=== PATIENT | male | born 1990 | race Caucasian/White ===

== ENCOUNTER → 2020-01-26 16:08 | Outpatient (BNVA) | payer OTHER, SELFPAY | PROVIDERS: Family Provider Nurse Practitioner Family; PCP Nurse Practitioner Family; Visit Provider Family Medicine | DX: Z20.828 Contact with and (suspected) exposure to other viral communicable diseases (principal) | CPT/HCPCS: 87635 ==

== ENCOUNTER 2020-09-19 09:09 | Day surgery (SDC) | payer OTHER, SELFPAY ==
[2020-09-17 14:26] VITALS: BMI 42.9
--- NOTE | 2020-09-19 09:30 | ANES.PREANE2 ---
Pre-Anesthetic Assessment Pre-Anesthetic Assessment: Height/Weight: Height 1.96 m Weight 164.2 kg Proposed Procedure: Operation Date: 09/19/20 11:15 Proposed Procedures p EGD 10309 k21.9(Not Applicable) - Redd Coreas MD Was Beta Corey taken within 24 hours: N/A Was Clonidine taken within 24 hours: N/A Social: Social History: No alcohol and No tobacco Exam: Pre-Anes Outpt Exam: alert, oriented x 3, clear to auscultation bilaterally and regular rate & rhythm Airway: Submandibular: WNL Cervical ROM: WNL MP: 1 Dentition: Full GI: GI: GERD Metabolic: Metabolic: Morbid obesity Neuropsych: Neuropsych: Anxiety Anesthetic Plan: ASA status: 3 Anesthesia: MAC Risk of > 500 ml blood loss (7ml/kg in children): No PFSH Anesthesia PFSH: Family History Other Cancer Denies family history of Diabetes CAD (coronary artery disease) Hypertension Stroke Social History Smoking and tobacco status: never smoked Alcohol intake: current Alcohol intake frequency: few times a week Lives independently: Yes Household members: spouse Marital status: service: Yes Data Anesthesia Cardiac Studies: No Data to Display
[2020-09-19 09:42] VITALS: BP 126/85; PULSE 70; RESP 16; TEMP 36.3; O2SAT 99
[2020-09-19] MEDS: sodium chloride 0.9% 1,000 ML 30 ML IV (09:54)
--- NOTE | 2020-09-19 10:41 | W.PM.OPSUD ---
Surgery/Procedure H&P Update DATE OF PROCEDURE: September 19, 2020 DATE H&P PERFORMED: 09/13/20 H&P UPDATE INFORMATION: I have reviewed H&P completed within last 30 days, I have examined patient prior to procedure and No changes to prior documentation PREOP DIAGNOSIS: Acid reflux associated with morbid obesity PRIMARY INDICATION FOR PROCEDURE: The same PLANNED PROCEDURE: Operation Date: 09/19/20 11:15 Proposed Procedures p EGD 99159 k21.9(Not Applicable) - Redd Coreas MD
[2020-09-19 12:25] VITALS: BP 120/78; PULSE 71; RESP 16; TEMP 36.4; O2SAT 93
[2020-09-19 12:39] VITALS: BP 115/78; PULSE 71; RESP 16; TEMP 36.4; O2SAT 95
--- NOTE | 2020-09-19 13:32 | ANE.PACU2 ---
Inpatient post-anesthesia follow up: Airway intact: Yes Vital signs: Temperature 97.6 F Pulse Rate 71 Respiratory Rate 16 Blood Pressure 115/78 Pulse Oximetry 95 Oxygen Delivery Me thod Room Air Oxygen Flow Rate 3 Fraction of Inspir ed Oxygen Hydration adequate: Yes Nausea and vomiting: No Pain level: 1 Mental status: Baseline
[2020-09-20 07:51] LABS: H. Pylori / CLO Test Negative
== END 2020-09-19 12:57 | disposition home or self-care (01) ==
PROVIDERS: Family Provider Nurse Practitioner Family; PCP Nurse Practitioner Family; Visit Provider Surgery
PROC: 0DJ08ZZ Inspection of Upper Intestinal Tract, Via Natural or Artificial Opening Endoscopic (ICD-10-PCS; CPT 43235; principal; 2020-09-19 11:15)
DX: K21.9 Gastro-esophageal reflux disease without esophagitis (principal); E66.01 Morbid (severe) obesity due to excess calories; Z68.41 Body mass index [BMI] 40.0-44.9, adult; K29.70 Gastritis, unspecified, without bleeding; F41.9 Anxiety disorder, unspecified; E03.9 Hypothyroidism, unspecified
CPT/HCPCS: 43239; 87077; 96360; 96361; J2704; J7030

== ENCOUNTER 2020-11-15 14:59 | Outpatient (CLI) | payer OTHER, SELFPAY ==
[2020-11-15 15:21] LABS: Basophils # 0.1 10^3/uL (0.0-0.1); Basophils % 0.9 %; Eosinophils # 0.2 10^3/uL (0.0-0.8); Eosinophils % 2.3 %; Hematocrit 46.2 % (42.0-52.0); Hemoglobin 15.1 g/dL (11.7-16.6); Lymphocytes # 1.7 10^3/uL (0.8-4.8); Lymphocytes % 21.3 %; Mean Corpuscular HGB Conc 32.7 g/dL (30.0-36.0); Mean Corpuscular Hemoglobin 28.8 pg (28.0-34.0); Mean Platelet Volume 8.8 fL (7.4-10.4); Monocytes # 0.8 10^3/uL (0.2-0.9); Monocytes % 9.6 %; Neutrophils # 5.19 10^3/uL (1.8-7.7); Neutrophils % 65.4 %; Nucleated Red Blood Cells % 0 %; Platelet Count 432 10^3/cmm (130-400); Red Blood Count 5.25 10^6/uL (4.1-5.3); Red Cell Distribution Width 13.4 % (12.1-15.1); White Blood Count 7.9 10^3/uL (4.0-10.0)
[2020-11-15 15:35] LABS: INR 1.09 (0.8-1.2)
[2020-11-15 16:04] LABS: Alanine Aminotransferase 78 U/L (0-41); Albumin Level 4.4 g/dL (3.5-5.2); Alkaline Phosphatase 84 IU/L (40-130); Anion Gap 16.2 (5-19); Aspartate Amino Transferase 37 U/L (0-40); Blood Urea Nitrogen 18 mg/dL (6-20); Calcium 9.3 mg/dL (8.5-10.5); Carbon Dioxide 24 mmol/L (22-29); Chloride 105 mmol/L (98-107); Chol HDL Ratio 5.58 mg/dL (1.0-5.00); Cholesterol 184 mg/dL (0-200); Ferritin 334 ng/mL (30-400); Globulin 2.8 g/dL (1.3-4.6); Glucose 90 mg/dL (65-115); HDL Cholesterol 33 mg/dL (60-100); Iron 74 ug/dL (59-158); LDL Cholesterol Calculated 127 mg/dL (50-129); LDL HDL Ratio 3.85 RATIO (0.00-3.22); Magnesium 2.2 mg/dL (1.7-2.3); Osmolality Calculated 293 mOsm/kg (285-295); Percent Saturation 26.4 % (20-50); Phosphorus 3.4 mg/dL (2.5-4.5); Potassium 4.2 mmol/L (3.5-5.1); Sodium 141 mmol/L (136-145); Thyroid Stimulating Hormone 1.47 uIU/mL (0.27-4.20); Total Bilirubin 0.3 mg/dL (0.15-1.2); Total Iron Binding Capacity 280 mcg/dl; Total Protein 7.2 g/dL (6.6-8.7); Triglycerides 122 mg/dL (0-150); Unsaturated Iron Binding 206 ug/dL (112-347); Vitamin B12 1076 pg/mL (232-1245)
[2020-11-15 16:16] LABS: Calcium 9.7 mg/dL (8.5-10.5)
[2020-11-15 16:18] LABS: Folate Level 18.6 ng/mL (4.5-32.2)
[2020-11-15 16:23] LABS: Parathyroid Hormone 48.2 pg/mL (15-65)
== END 2020-11-15 15:00 | disposition home or self-care (01) ==
PROVIDERS: PCP Nurse Practitioner Family; Visit Provider Surgery
DX: E88.81 Metabolic syndrome and other insulin resistance (principal)
CPT/HCPCS: 36415; 80053; 80061; 82310; 82607; 82728; 82746; 83540; 83550; 83735; 83970; 84100; 84443; 85025; 85610; 87635

== ENCOUNTER 2020-11-20 15:57 | Inpatient (IN) | payer OTHER, SELFPAY ==
[2020-11-15 12:58] VITALS: BMI 41.2
--- NOTE | 2020-11-15 17:53 | ANES.PREANE2 ---
Pre-Anesthetic Assessment Pre-Anesthetic Assessment: Height/Weight: Height 1.96 m Weight 157.85 kg Preop Diagnosis: Acid reflux associated with morbid obesity Proposed Procedure: Operation Date: 11/20/20 07:00 Proposed Procedures p Laparoscopic Gastric Sleeve w/ EGD 32095 [id number] e66.01(Not Applicable) - Redd Coreas MD s EGD(Not Applicable) - Redd Coreas MD Was Beta Corey taken within 24 hours: N/A Was Clonidine taken within 24 hours: N/A Social: Social History: No alcohol and No tobacco Exam: Pre-Anes Outpt Exam: alert, oriented x 3, clear to auscultation bilaterally and regular rate & rhythm Airway: Submandibular: WNL Cervical ROM: WNL MP: 2 Dentition: Full GI: GI: GERD Metabolic: Metabolic: Thyroid Neuropsych: Neuropsych: Depression Anesthetic Plan: ASA status: 2 Anesthesia: General Risk of > 500 ml blood loss (7ml/kg in children): No PFSH Anesthesia PFSH: Family History Other Cancer Denies family history of Diabetes CAD (coronary artery disease) Hypertension Stroke Social History Smoking and tobacco status: never smoked Alcohol intake: current Alcohol intake frequency: few times a week Lives independently: Yes Household members: spouse Marital status: service: Yes Data Anesthesia Cardiac Studies: No Data to Display
[2020-11-20] VITALS (30 sets, daily range): BP systolic 111–165; BP diastolic 72–99; PULSE 49–85; RESP 10–26; TEMP 36.2–37.1; O2SAT 91–100
[2020-11-20] MEDS: sodium chloride 0.9% 1,000 ML 999 ML IV (08:40)
[2020-11-20] MEDS: acetaminophen 1,000 MG/100 ML PIGGYBACK 400 MG IV ×2 (08:40→23:50)
[2020-11-20] MEDS: heparin 5,000 unit/mL INJ 1 mL 5000 UNIT SUBCUT ×2 (08:46→22:42)
[2020-11-20] MEDS: scopolamine 1.5 Patch 1 PATCH TRANSDERMA (08:46)
[2020-11-20] MEDS: pantoprazole 40 mg SDV IVP (08:52)
[2020-11-20] MEDS: sodium chloride 0.9% 1,000 ML 30 ML IV (09:53)
--- NOTE | 2020-11-20 10:04 | P.ANESUD_ITS ---
Pre-Anesthetic Update Pre-Anesthetic Assessment: Date of Surgery/Procedure: 11/20/20 Preop Luz Elena gnosis: Acid reflux associated with morbid obesity Proposed Procedure: Operation Date: 11/20/20 10:20 Proposed Procedures p Laparoscopic Gastric Sleeve w/ EGD 50976 [id number] e66.01(Not Applicable) - Redd Coreas MD s EGD(Not Applicable) - Redd Coreas MD Any changes to Pre-Anesthetic Assessment?: No Last Intake: Intake Last Liquid Date 11/19/20 Last Liquid Time 19:00 Last Solid Date 10/30/20 Last Solid Time 00:00 Vitals: Temperature 97.2 F L 11/20/20 08:18 Temperature Source Temporal Artery S can 11/20/20 08:18 Pulse Rate 70 11/20/20 08:18 Respiratory Rate 16 11/20/20 08:18 Blood Pressure 151/99 11/20/20 08:18 Blood Pressure Grace n 116 11/20/20 08:18 Pulse Oximetry 95 11/20/20 08:18 Oxygen Delivery Me thod 11/20/20 08:23 Exam: Pre-Anes Outpt Exam: alert, oriented x 3, clear to auscultation bilaterally and regular rate & rhythm Cardiac Studies: No Data to Display
--- NOTE | 2020-11-20 10:36 | PM.HP ---
Providers/Chief Complaint Admitting Physician: Redd Coreas MD Primary Care Provider: Lisa Weems APN Chief Complaint: gastric sleeve with egd History of Present Illness Wale Finley is a pleasant 30 year old male morbidly obese with a current BMI of 40.9 with associated multiple medical comorbidities, has seen and evaluated at the bariatric surgery office and met all the appropriate criteria and medical necessity for weight loss surgery in the form of laparoscopic vertical sleeve gastrectomy. Patient was cleared by psychology service and attended all the appropriate seminars and classes in preparation for surgery. Review of Systems General: Reports: 10 or more systems reviewed and unremarkable except in HPI and below Medications/Allergies Home Medications Medication Instructions Recorded Confirmed Last Taken Type bupropion HCl 75 mg tablet 75 mg PO DAILY 09/13/20 11/20/20 11/19/20 History cholecalciferol (vitamin D3) 25 25 mcg PO DAILY 09/13/20 11/20/20 11/19/20 History mcg (1,000 unit) capsule fluoxetine 20 mg capsule 20 mg PO DAILY 09/13/20 11/20/20 11/19/20 History levothyroxine 125 mcg capsule 125 mcg PO DAILY 09/13/20 11/20/20 11/19/20 History Allergies Allergy/AdvReac Type Severity Reaction Status Date / Time No Known Allergies Allergy Verified 11/17/20 17:18 PFSH Acute PFSH: Family History Other Cancer Denies family history of Diabetes CAD (coronary artery disease) Hypertension Stroke Social History Smoking and tobacco status: never smoked Alcohol intake: current Alcohol intake frequency: few times a week Lives independently: Yes Household members: spouse Marital status: service: Yes Vitals/I&O/Wt Last Vital Signs Temp 97.2 F L 11/20/20 08:18 Pulse 70 11/20/20 08:18 Resp 16 11/20/20 08:18 BP 151/99 11/20/20 08:18 Pulse Ox 95 11/20/20 08:18 11/19/20 11/20/20 11/20/20 22:59 06:59 14:59 Intake Total 1100 / 1100 Balance 1100 / 1100 Weight last 48 hrs Weight 345 lb Physical Exam Narrative: EXAM NARRATIVE: Patient is conscious alert oriented X3 BMI 40.9 Head and neck examination PERRLA no masses no cervical lymphadenopathy no jaundice Cardiac examination audible S1-S2 no murmurs no gallops no arrhythmias Chest is clear bilateral,abscence of Rhonchi or wheezes,no surgical emphysema Abdomen nontender nondistended soft no organomegaly guarding or rigidity/no signs of peritonitis Morbidly obese Extremities no cyanosis no clubbing no edema A&P Assessment and plan (1) Morbid obesity: After thorough history physical examination and reviewing the chart i Did discuss with the patient about obesity, and its impact on the patient's life, we did discuss in length the details of laparoscopic gastric sleeve, including the benefits, alternatives, indications and risks, with special emphasis on; infection, leak from stomach that may require additional surgeries, gastric conduit stenosis, dumping syndrome, vitamin and mineral deficiencies, gallbladder and kidney stones, injury to nearby organs. Also patient is aware of potential related complications to bougie insertion and EGD, perforation of the esophagus or stomach or other viscera, may require further surgeries conversion to open with potential thoracotomy and or laparotomy and conversion to gastric bypass and potential placement of feeding tube. Discussed WEIGHT loss AT LEAST 5% of total body weight prior to surgery Patient received at least 60 minutes of counseling regarding nutritional guidelines specific for the bariatric surgery patient, we discussed in detail required diet and lifestyle changes that need to be made in order to be successful with weight loss after surgery. All questions have been answered and all concerns have been addressed to patient's satisfaction. Routine labs were ordered, a baseline 12-lead EKG was obtained, as well as urinalysis, recommended patient increase water intake for adequate oral hydration. Patient has been compliant with the preoperative classes and seminars that were held,and supervised through our bariatric services, all patient's inquiries and concerns have been addressed, preoperative classes included nutrition,physical therapy, psychology, nursing care and description of the procedure by me and potential complications. In addition patient had undergoing appropriate preoperative anesthesia workup. Patient is educated about having liquid protein diet 2 weeks prior to surgery to downsize the volume of the liver. The patient verbalized understanding and agreed with the plan of care Informed consent per chart Status: Acute Attestations Medical Necessity Statement*: Patient will require inpatient patient will require inpatient hospitalization for perioperative care passing 2 midnights Time Spent in Patient Care: (>than 50% of time spent in counselling and/or direct pt care on unit). Coding Level of Care Code Acute Sharepoint Application Developer for Chg Fwd Diagnoses Morbid obesity E66.01
--- NOTE | 2020-11-20 14:25 | P.OP_ITS ---
Operative Report Date of procedure: November 20, 2020 Pre-op Diagnosis: Morbid obesity Post-op diagnosis: same Procedure Done: Laparoscopic vertical sleeve gastrectomy with intraoperative EGD Specimens removed/disposition: Subtotal gastrectomy status post gastric sleeve, sutures marked proximal Surgeon: Redd Coreas Tar Roofer: Surgical techjasmin Carson, industrial tech instructor student circulating nurse Mame Mendosa Anesthesia: General ( ALCIRA Montalvo and Dr. Cantrell) Estimated blood loss (mL): 20 IV fluids (mL): 1,100 Urine output (mL): 750 Condition: stable Disposition: floor Brief History: Morbid obesity Procedure: Procedure: Patient was identified in holding area , appropriate pharmacologic DVT prophylaxis was given and preoperative IV fluid hydration, patient was then taken to the operating room where the patient was placed in supine position, intubated by anesthesia prophylactic antibiotics were given per protocol,Time-out was done verifying the patient's name/date of /planned procedure and destination after the procedure, all were in agreement.SCDs confirmed to be functioning, and beta salvador protocol was confirmed. A Nguyễn catheter was inserted by the circulating nurse revealing clear urine. A foot board was applied to secure the patient while the patient is placed in reversed Trendelenburg, all pressure points were padded, and the patient was appropriately secured to the table, anesthesia was asked to rotate the table back and forth to verify that the patient is appropriately secured, and that was the case. The abdomen was prepped and draped under the usual sterile technique. A 1 cm transverse incision was made with a 15 blade scalpel approximately 15 cm below the xiphoid process and 3 cm left of the midline.A 12 mm optical trocar port was placed under direct vision into the peritoneal cavity without intial evidence of injury to peritoneal structures upon entry. The peritoneal cavity was insufflated with carbon dioxide gas up to 15 mmHg pressure.A 45? angle laparoscopy was placed through the port into the peritoneal cavity there was no significant blood, fluid, or evidence of intra-abdominal injury under direct visualization,Longer trocars were then used;a 12 mm trocar port was placed in the right epigastric region and a fourth 5 mm trocar port was placed in the mid epigastric region more caudad than and medial to the previous port. A 5 mm trocar port was placed in the left lateral flank and additional 5 mm trocar was inserted midway between the left lateral flank trocar and the initial 12 mm trocar. I lifted the omentum up to make sure there were no injuries encountered from the initial trocar insertion, the underlying transverse colon and small bowel viscera were normal. There was a small superficial tear of the mesentery of the small bowel and a [id number] 2-0 silk stitch was applied under direct visualization. All trocars inserted were long arc trocars due to the thick layer of subcutaneous tissue that the patient has. Patient was then placed in the reversed Trendelenburg, the liver responded well to the liquid protein diet and there was no indication for elevation and lifting the liver up. Following this, the greater curvature of the stomach was freed from the omentum using the Enseal device. This division included the short gastric vessels proximally. This dissection was carried from approximately 4 cm-6 cm proximal to the pylorus and extending all the way up to the angle of Hiss. During this process the posterior aspect of the stomach was mobilized from the underlying peritoneum and the posterior aspect of the stomach was well exposed. With the greater curvature of the stomach exposed from within 4-6 cm of the pylorus and extending to the angle of Hiss, which also included the posterior stomach, a 40 [place]i standard template passed under direct vision down the esophagus, stomach, and into the first part of the duodenum by the anesthesia provider and under direct guidance and visualization by me,via the laparoscopy. Using the template 40 [place]i aligned along the lesser curvature of the stomach and all the way to the first part of the Duodenum,the 40 [place] Bougie was used as a template the laparoscopic vertical gastric sleeve was performed starting from a point about 5 cm from the pylorus along the greater curvature.Using the [place] Laparoscopic ABHINAV linear cutting stapler with [employer] Endopath enforcement, a series of german were used to transect the stomach in a vertical fashion along the left side of the template. Through the entire division of the stomach using the staplers,the template was always checked to be in good place and well aligned to the lesser curvature while dividing the stomach. This was carried all the way to the angle of Hiss.Green loads were used for the distal two thirds of the stomach and green loads were used for the distal part the more proximal part of the stomach Gold loads were used and the last loads were blue load with reinforcement(Endopath). The staple line along the remaining tubularized stomach was tested for leaks and bleeding under direct vision as the 40 [place] template was exchanged (and there was no evidence of blood on the tip of the template) by a standard diagnostic EGD via the mouth by my me after I scrubbed out, insufflation was achieved and the staple line submerged under saline ,meanwhile a clamp was applied distally onto the end of the tubularized stomach to allow insufflation test for leak. There was no evidence of leak .There was adequate hemostasis along the staple line.EGD was taken out at this point after deflation of the tubularized stomach. The transected partial stomach, which included the greater curvature, was removed from the peritoneum through the first 12 mm trocar site, and was sent for permanent pathology Prior to closure of the fascia. A final look laparoscopy identified no injuries, there was mild oozing at the fat pad at the GE junction and 5 m clips were applied as well as the distal part of the conduit. An interrupted #1 PDS suture on a granny needle suture passer was used to close the right epigastric and the other 12 mm trocar left of the midline fascial defects under direct visualization.The other trocars were removed under direct vision and no evidence of bleeding was identified. Final look at the superficial mesenteric tear of the small bowel was intact and no bleeding and no jeopardizing of the blood flow to the bowel. The pneumoperitoneum was decompressed.All skin incisions were irrigated with saline, then closed with german, followed by application of sterile dressings.The patient was extubated and taken to the recovery room with normal vital signs. All counts of instruments,sponges and needles were completed at the end of the procedure I was present for the whole entire procedure
--- NOTE | 2020-11-20 14:39 | SUR.PHASEI ---
1437 PATIENT TO PACU FROM OR. RR EVEN AND UNLABORED. NO DISTRESS. 4 INCISIONS TO ABDOMEN, CDI COVERED WITH BANDAIDS. DUNN IN PLACE.
[2020-11-20] MEDS: fentaNYL 50 mcg/mL INJ 2mL IVP ×2 (14:49→15:04)
[2020-11-20] MEDS: ondansetron 2 mg/ML SDV 2 mL 4 MG IVP ×3 (15:19→23:11)
--- NOTE | 2020-11-20 16:02 | SUR.PHASEI ---
1546 PATIENT TO MED SURG. NO DISTRESS. A/XO3. SPOUSE AT BEDSIDE. 4 INCISIONS TO ABDOMEN CDI. DUNN CATH IN PLACE DRAINING CLEAR, YELLOW URINE.
[2020-11-20] MEDS: HYDROmorphone 1 mg/mL INJ 1 mL IVP ×2 (16:58→19:35)
[2020-11-20] MEDS: lactated ringers 1,000 ML 150 ML IV ×2 (16:58→22:43)
[2020-11-20 17:02] LABS: Glucose Point of Care 140 mg/dL (70-110)
--- NOTE | 2020-11-20 18:57 | ANE.PACU2 ---
Inpatient post-anesthesia follow up: Airway intact: Yes Vital signs: Temperature 98.2 F Pulse Rate 54 Respiratory Rate 17 Blood Pressure 111/72 Pulse Oximetry 92 Oxygen Delivery Me thod Nasal Cannula Oxygen Flow Rate 2 Fraction of Inspir ed Oxygen Hydration adequate: Yes Nausea and vomiting: No Pain level: 2 Mental status: Baseline
[2020-11-20] MEDS: promethazine 25 mg/mL SDV 1 mL 12.5 MG IM (19:18)
[2020-11-20] MEDS: morphine 4 mg/mL SDV 1 mL 2 MG IVP (23:10)
[2020-11-21] VITALS (9 sets, daily range): BP systolic 133–145; BP diastolic 84–87; PULSE 53–66; RESP 14–18; TEMP 36.6–37.3; O2SAT 93–96
[2020-11-21 02:56] LABS: Hematocrit 45.5 % (42.0-52.0); Hemoglobin 14.6 g/dL (11.7-16.6)
[2020-11-21 03:15] LABS: Anion Gap 14.5 (5-19); Blood Urea Nitrogen 6 mg/dL (6-20); Calcium 8.5 mg/dL (8.5-10.5); Carbon Dioxide 24 mmol/L (22-29); Chloride 105 mmol/L (98-107); Glomerular Filtration Rate 156.1 mL/min (90-130); Glucose 140 mg/dL (65-115); Osmolality Calculated 288 mOsm/kg (285-295); Potassium 4.5 mmol/L (3.5-5.1); Sodium 139 mmol/L (136-145)
[2020-11-21] MEDS: morphine 4 mg/mL SDV 1 mL 2 MG IVP (03:49)
[2020-11-21] MEDS: promethazine 25 mg/mL SDV 1 mL 12.5 MG IM (03:52)
[2020-11-21] MEDS: lactated ringers 1,000 ML 150 ML IV ×3 (05:29→23:14)
--- NOTE | 2020-11-21 06:10 | P.PN_ITS ---
Subjective Subjective: Interval history: Patient overall feels well. No acute events overnight and adequate urine output. Stable H&H Medications: Reviewed: Yes Vitals/I&O/Wt Last Vital Signs Temp 97.8 F 11/21/20 04:00 Pulse 62 11/21/20 04:00 Resp 14 11/21/20 04:00 BP 142/84 11/21/20 04:00 Pulse Ox 96 11/21/20 04:00 11/20/20 11/20/20 11/21/20 14:59 22:59 06:59 Intake Total 1250 / 1250 1112.5 / 2362.5 1100 / 3462.5 Output Total 970 / 970 500 / 1470 Balance 280 / 280 612.5 / 892.5 1100 / 1992.5 Weight last 48 hrs Weight 345 lb Physical Exam Narrative: EXAM NARRATIVE: Patient is conscious alert oriented X3 BMI 40.9 Head and neck examination PERRLA no masses no cervical lymphadenopathy no jaundice Cardiac examination audible S1-S2 no murmurs no gallops no arrhythmias Chest is clear bilateral,abscence of Rhonchi or wheezes,no surgical emphysema Abdomen nontender except slightly at the incision sites nondistended soft no organomegaly guarding or rigidity/no signs of peritonitis, dressing in place without complications. Nguyễn catheter in place with clear urine Extremities no cyanosis no clubbing no edema Urinary Catheter Management^: Nguyễn: Cath Placed During This Visit: yes Reason for Continuing Indwelling Catheter: Other Urinary Catheter Date of Insertion: 11/20/20 Urinary Catheter Time of Insertion: 12:00 Data : 11/21/20 02:25 11/21/20 02:25 A&P Assessment and plan (1) Status post laparoscopic sleeve gastrectomy: Status post laparoscopic sleeve gastrectomy 11/20/2020. We will continue n.p.o. status and will follow an upper GI study once this is cleared we will start the patient on clear liquid diet. Encourage ambulation and will continue pharmacologic DVT prophylaxis DC Nguyễn catheter Continue wireless cellular technician Assurance and education All questions have been answered and all concerns have been addressed to patient's satisfaction. Status: Acute Attestations Medical Necessity Statement*: She requiring inpatient hospitalization passing 2 midnights for perioperative care status post laparoscopic sleeve gastrectomy. Time Spent in Patient Care: (>than 50% of time spent in counselling and/or direct pt care on unit) . Coding Level of Care Code Acute Group Home Supervisor for Chg Fwd Diagnoses Status post laparoscopic sleeve gastrectomy Z98.84
[2020-11-21] MEDS: heparin 5,000 unit/mL INJ 1 mL 5000 UNIT SUBCUT ×3 (06:23→23:08)
--- NOTE | 2020-11-21 08:00 | FL_ITS ---
WS: [id number] Gastrografin UPPER GI EXAMINATION HISTORY: Status Post Gastric Sleeve COMPARISON: None available. FLUOROSCOPY TIME: 0.9 minutes. Patient swallowed the Gastrografin mixture without difficulty. Good distention of the distal esophagu s. There is very slight narrowing of the distal esophagus. Gastrografin flows readily into the stomac h and through the gastric sleeve into the proximal duodenum. No extravasation of the Gastrografin from the GI tract. [place]/MD upper GI series 37124 IMPRESSION: Satisfactory recent post gastric sleeve Gastrografin evaluation.
[2020-11-21] MEDS: HYDROmorphone 1 mg/mL INJ 1 mL IVP (08:01)
[2020-11-21] MEDS: ondansetron 2 mg/ML SDV 2 mL 4 MG IVP ×3 (08:01→23:12)
[2020-11-21] MEDS: diatrizoate meglumine 120 mL Sol PO (08:26)
--- NOTE | 2020-11-21 10:18 | PC.CHAP ---
Pastoral Care Encounter/Spiritual Assessment Type of Contact [] Declined rental boats caretaker visit [] Patient/Family/Request visit [] Outpatient visit [] Follow-up visit [] Physician referral [] Code/Alert [x] Routine visit [] Staff referral [] Actively dying [] Patient sleeping [] Family support [] [] Out of room [] Palliative care [] [] Receiving care in room [] Pre-surgical visit [] Trauma [] Long length of stay [] ICU visit [] Other: Relational/Emotional Strength [x] Patient feels connected with others/family/visitors/staff [] Distress [] Loneliness/isolation [] Abandonment Spirituality of Patient x[] Person of Dunia [x] Attends [employer] of their [place] [] Believes in Prayer [] Reads Bible or Mormon materials [] There are Spiritual issues to be addressed Environmental Department Manager Interventions [x] Prayer [x] Active listening [x] Non-anxious presence [] Spiritual/emotional support [] Crisis/trauma care [] Spiritual counseling [] Bereavement support [] Provided bereavement packet [] Provided Bible/devotional materials [] Provided toy/stuffed animal, coloring book to patient or family member [] Provided Communion [] Anointing/[place] [] Salvation [x] Completed spiritual assessment [] Other: Impact on Illness or Injury [] Angry [] Fearful [] Anxious [] Often cries [] Exhaustion [] Unable to work [] Unable to attend baptist [] Unable to walk/stand [] Unable to read [] Unable to drive [] Unable to eat/drink [] Unable to sleep [] Unable to be with family [] Patient intubated [] Other: Summary Time spent with patient 10 min
--- NOTE | 2020-11-21 13:42 | PC.NUTR ---
Nutrition consult received d/t bariatric surgery. Pt denies questions/concerns at this time regarding education provided through bariatric program. Reports vomiting at lunch--will notify MD> Noted [employer] Gelatein on tray--explained rationale for this product and encouraged pt to consume this when able to tolerate. Recommend to advance diet as tolerated by pt and encourage po intakes of meals/supplements. See RD assessment for further details.
[2020-11-21] MEDS: acetaminophen 1,000 MG/100 ML PIGGYBACK 400 MG IV (14:53)
[2020-11-21] MEDS: HYDROcodone-acetaminophen 5-325 mg Tablet 1 TAB PO (20:15)
[2020-11-22] VITALS (7 sets, daily range): BP systolic 116–162; BP diastolic 80–95; PULSE 57–82; RESP 16–18; TEMP 36.8–37.7; O2SAT 91–94
[2020-11-22 03:25] LABS: Hematocrit 41.5 % (42.0-52.0); Hemoglobin 13.3 g/dL (11.7-16.6)
[2020-11-22 03:44] LABS: Anion Gap 11.9 (5-19); Blood Urea Nitrogen 6 mg/dL (6-20); Calcium 8.6 mg/dL (8.5-10.5); Carbon Dioxide 25 mmol/L (22-29); Chloride 105 mmol/L (98-107); Glucose 103 mg/dL (65-115); Osmolality Calculated 284 mOsm/kg (285-295); Potassium 3.9 mmol/L (3.5-5.1); Sodium 138 mmol/L (136-145)
[2020-11-22] MEDS: heparin 5,000 unit/mL INJ 1 mL 5000 UNIT SUBCUT ×2 (05:54→14:29)
[2020-11-22] MEDS: lactated ringers 1,000 ML 150 ML IV ×2 (05:54→14:30)
--- NOTE | 2020-11-22 07:32 | PC.NURSE ---
Bedside report received from Omayra Perez RN.
--- NOTE | 2020-11-22 12:00 | P.PN_ITS ---
Subjective Subjective: Interval history: Patient was seen and examined yesterday, he had a small bout of emesis yesterday yet no other acute events and he maintains to have adequate urine output and pain under control. So far tolerating p.o. intake and has stable vital signs. Slight drift in H&H. Medications: Reviewed: Yes Vitals/I&O/Wt Last Vital Signs Temp 98.7 F 11/22/20 11:36 Pulse 82 11/22/20 11:36 Resp 16 11/22/20 11:36 BP 116/80 11/22/20 11:36 Pulse Ox 92 11/22/20 11:36 11/21/20 11/22/20 11/22/20 22:59 06:59 14:59 Intake Total 300 / 1420 1930 / 3350 240 / 240 Output Total 1000 / 1010 Balance 300 / 1410 930 / 2340 240 / 240 Physical Exam Narrative: EXAM NARRATIVE: Patient is conscious alert oriented X3 BMI 40.9 Head and neck examination PERRLA no masses no cervical lymphadenopathy no jaundice Cardiac examination audible S1-S2 no murmurs no gallops no arrhythmias Chest is clear bilateral,abscence of Rhonchi or wheezes,no surgical emphysema Abdomen nontender except slightly at the incision sites nondistended soft no organomegaly guarding or rigidity/no signs of peritonitis. Skin german in place and incisions are clean dry and intact Extremities no cyanosis no clubbing no edema Urinary Catheter Management^: Nguyễn: Cath Placed During This Visit: yes Reason for Continuing Indwelling Catheter: Other Urinary Catheter Date of Insertion: 11/20/20 Urinary Catheter Time of Insertion: 12:00 Data : 11/22/20 02:37 11/22/20 02:37 A&P Assessment and plan (1) Status post laparoscopic sleeve gastrectomy: Status post laparoscopic sleeve gastrectomy 11/20/2020. 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 Assurance and education All questions have been answered and all concerns have been addressed to patient's satisfaction. Status: Acute Attestations Medical Necessity Statement*: Patient requiring inpatient hospitalization passing 2 midnights for perioperative care status post laparoscopic sleeve gastrectomy. Time Spent in Patient Care: (>than 50% of time spent in counselling and/or direct pt care on unit) . Coding Level of Care Code Acute Technical Operator for Chg Fwd Diagnoses Status post laparoscopic sleeve gastrectomy Z98.84
--- NOTE | 2020-11-22 17:03 | PM.DCS ---
Discharge Providers Date of Admission: 11/20/20 15:57 Date of Discharge: November 22, 2020 Attending Provider at Admission: Redd Coreas MD Attending Provider at Discharge: Redd Coreas MD Primary Care Provider: Lisa Weems APN Diagnoses at Discharge Discharge Diagnosis (1) Status post laparoscopic sleeve gastrectomy: Permanent problem details: Patient undergone uneventful laparoscopic sleeve gastrectomy. Reason for Visit Reason for Visit: gastric sleeve with egd Hospital Course Hospital Course This is a pleasant 30 years old gentleman morbidly obese undergone laparoscopic vertical sleeve gastrectomy. Postoperatively patient had uneventful postoperative course. Undergone an upper GI study that showed appropriate postoperative surgical anatomy. Patient continued to have stable vital signs and good urine output. Maintained appropriate p.o. intake yet he did have one bout of small emesis but that subsided with appropriate education and antinausea medications. Patient met the appropriate and safe criteria for discharge home Physical Exam Narrative: EXAM NARRATIVE: Patient is conscious alert oriented X3 BMI 40.9 Head and neck examination PERRLA no masses no cervical lymphadenopathy no jaundice Cardiac examination audible S1-S2 no murmurs no gallops no arrhythmias Chest is clear bilateral,abscence of Rhonchi or wheezes,no surgical emphysema Abdomen nontender except slightly at the incision sites nondistended soft no organomegaly guarding or rigidity/no signs of peritonitis. Skin german in place and incisions are clean dry and intact Extremities no cyanosis no clubbing no edema Urinary Catheter Management^: Nguyễn: Cath Placed During This Visit: yes Reason for Continuing Indwelling Catheter: Other Urinary Catheter Date of Insertion: 11/20/20 Urinary Catheter Time of Insertion: 12:00 Discharge Data Data Completed and Pending: Completed Studies During Hospitalization Category Date Time Status [place] [id number] Routine Exams 11/21/20 08:00 Completed Pending at discharge Category Date Time Status ES surgery / GI i mages Routine Exams 11/20/20 10:20 Taken Basic Metabolic P ryne AM LABS Lab 11/23/20 04:00 Ordered Hemoglobin and He matocrit AM LABS Lab 11/23/20 04:00 Ordered Pathology: Surgic al [PTH] Routine Pth 11/20/20 14:40 Received Labs from last 24 hours 11/22/20 11/22/20 02:37 02:37 Hgb 13.3 Hct 41.5 L Sodium 138 Potassium 3.9 Chloride 105 Carbon Dioxide 25 Anion Gap 11.9 BUN 6 Creatinine 0.8 GFR Calculation 112.0 Glucose 103 Calculated Osmolal ity 284 L Calcium 8.6 Addt'l Data from Hospital Stay: Patient swallowed the Gastrografin mixture without difficulty. Good distention of the distal esophagus. There is very slight narrowing of the distal esophagus. Gastrografin flows readily into the stomach and through the gastric sleeve into the proximal duodenum. No extravasation of the Gastrografin from the GI tract. FL/FL upper GI series [id number] IMPRESSION: Satisfactory recent post gastric sleeve Gastrografin evaluation. Vitals: Last Vital Signs Temp 98.9 F 11/22/20 16:07 Pulse 63 11/22/20 16:07 Resp 16 11/22/20 16:07 BP 120/81 11/22/20 16:07 Pulse Ox 94 11/22/20 16:07 Discharge Plan Discharge Patient Disposition: Home Condition: Stable Prescriptions: New Zofran 4 mg tablet 4 mg PO Q8H PRN (Reason: nausea and vomiting) 20 Days Qty: 60 RF: 1 Protonix 40 mg tablet,delayed release (DR/EC) 40 mg PO DAILY 30 Days Qty: 30 RF: 2 Transderm-Scop 1 mg over 3 days patch 3 day 1 patch transdermal Q3D PRN (Reason: nausea and vomiting) 12 Days Qty: 4 RF: 1 hydrocodone-acetaminophen 5-325 mg tablet 1 tab PO Q6H PRN (Reason: pain) Qty: 28 RF: 0 Continued fluoxetine [Prozac] 20 mg capsule 20 mg PO DAILY RF: 0 bupropion HCl 75 mg tablet 75 mg PO DAILY RF: 0 levothyroxine 125 mcg capsule 125 mcg PO DAILY RF: 0 cholecalciferol (vitamin D3) 25 mcg (1,000 unit) capsule 25 mcg PO DAILY RF: 0 Discharge Orders: Discharge Order (Routine); Ordered 11/22/20 Ordered By: Redd Coreas Referrals: Redd Coreas MD [Physician] - 1 week (Please call [facility] tomorrow to schedule an appointment to be seen in one week. ) Discharge Diet: As Directed Discharge Activity: Limit activity as instructed Patient Instructions: Scopolamine (Absorbed through the skin), Hydrocodone/Acetaminophen (By mouth), Ondansetron (By mouth), Pantoprazole (By mouth), Laparoscopic Gastrectomy (DC), Opioid Safety Activity Restrictions/Additional Instructions: 1. Patient can shower after 48 hours from surgery 2. Plan to Dc skin german at the office by your provider 3. Up and walking as tolerated 4. Do NOT lift more than 5 pounds first 2 weeks after surgery and not more than 25 pounds 6 to 8 weeks after surgery. 5. Do not operate heavy machinery or drive while using pain medications. 6.Contact the office or return to the ER for worsening nausea vomiting fevers or chills, or noticing any redness around incision sites or discharge. 7.Avoid constiption 8.Follow nutrition guidelines per Dietary seminar. Discharge Attestations Time Spent in Discharge Care*: greater than 30 min Specific Discharge Activities: educating patient and educating and/or supporting family/caregiver Status at Discharge: Cognitive status at discharge: cognitively intact, Behavioral status at discharge: cooperative, Functional status at discharge: independent ambulation Overall status at discharge: patient is progressing back to baseline Quality Metrics Clinical Quality Measures During this hospital stay, did patient experience: None Coding Level of Care Code Acute Chg FW DC note Diagnoses Status post laparoscopic sleeve gastrectomy Z98.84
== END 2020-11-22 17:37 | disposition home or self-care (01) | DRG 621 ==
LOC: MEDSURG 15:57
PROVIDERS: Admitting Provider Surgery; PCP Nurse Practitioner Family; Visit Provider Surgery
PROC: 0DB64Z3 Excision of Stomach, Percutaneous Endoscopic Approach, Vertical (ICD-10-PCS; CPT 43775; principal; 2020-11-20 10:20)
PROC: 0DJ08ZZ Inspection of Upper Intestinal Tract, Via Natural or Artificial Opening Endoscopic (ICD-10-PCS; CPT 43235; 2020-11-20 10:20)
DX: E66.01 Morbid (severe) obesity due to excess calories (principal); Z68.41 Body mass index [BMI] 40.0-44.9, adult; K21.9 Gastro-esophageal reflux disease without esophagitis; R11.10 Vomiting, unspecified
CPT/HCPCS: 36415; 36416; 51702; 74240; 80048; 82962; 85014; 85018; 88309; 96365; 96372; 96374; 96375; C9113; C9290; J0690; J1100; J1170; J1644; J2270; J2405; J2550; J2704; J3010; J3490; J7030; Q9963

== ENCOUNTER 2021-02-18 16:15 | Outpatient (CLI) | payer OTHER, SELFPAY ==
[2021-02-18 16:49] LABS: Basophils # 0.1 10^3/uL (0.0-0.1); Basophils % 0.8 %; Eosinophils # 0.3 10^3/uL (0.0-0.8); Eosinophils % 3.2 %; Hematocrit 42.8 % (42.0-52.0); Hemoglobin 13.9 g/dL (11.7-16.6); Lymphocytes # 2.2 10^3/uL (0.8-4.8); Lymphocytes % 27.8 %; Mean Corpuscular HGB Conc 32.5 g/dL (30.0-36.0); Mean Corpuscular Hemoglobin 28.6 pg (28.0-34.0); Mean Corpuscular Volume 88.1 fl (80-94); Mean Platelet Volume 9.1 fL (7.4-10.4); Monocytes # 0.6 10^3/uL (0.2-0.9); Monocytes % 8.1 %; Neutrophils # 4.65 10^3/uL (1.8-7.7); Nucleated Red Blood Cells % 0 %; Platelet Count 368 10^3/cmm (130-400); Red Blood Count 4.86 10^6/uL (4.1-5.3); Red Cell Distribution Width 13.2 % (12.1-15.1); White Blood Count 7.8 10^3/uL (4.0-10.0)
[2021-02-18 17:42] LABS: Calcium 9.4 mg/dL (8.5-10.5)
[2021-02-18 17:49] LABS: Parathyroid Hormone 51.4 pg/mL (15-65)
[2021-02-18 17:54] LABS: Alanine Aminotransferase 27 U/L (0-41); Albumin Level 4.2 g/dL (3.5-5.2); Alkaline Phosphatase 79 IU/L (40-130); Anion Gap 12.9 (5-19); Aspartate Amino Transferase 16 U/L (0-40); Blood Urea Nitrogen 10 mg/dL (6-20); Calcium 9.4 mg/dL (8.5-10.5); Carbon Dioxide 26 mmol/L (22-29); Chloride 107 mmol/L (98-107); Cholesterol 164 mg/dL (0-200); Ferritin 230 ng/mL (30-400); Globulin 2.4 g/dL (1.3-4.6); Glomerular Filtration Rate 129.9 mL/min (90-130); Glucose 79 mg/dL (65-115); HDL Cholesterol 41 mg/dL (60-100); Iron 66 ug/dL (59-158); LDL Cholesterol Calculated 101 mg/dL (50-129); LDL HDL Ratio 2.46 RATIO (0.00-3.22); Magnesium 2.1 mg/dL (1.7-2.3); Osmolality Calculated 292 mOsm/kg (285-295); Percent Saturation 26.9 % (20-50); Potassium 3.9 mmol/L (3.5-5.1); Sodium 142 mmol/L (136-145); Total Bilirubin 0.2 mg/dL (0.15-1.2); Total Iron Binding Capacity 245 mcg/dl; Total Protein 6.6 g/dL (6.6-8.7); Triglycerides 112 mg/dL (0-150); Unsaturated Iron Binding 179 ug/dL (112-347); Vitamin B12 704 pg/mL (232-1245)
[2021-02-18 17:57] LABS: Folate Level 10.9 ng/mL (4.5-32.2)
[2021-02-22 18:48] LABS: Vitamin B1(Thiamin) Plas/Ser 8 nmol/L (8-30)
[2021-02-23 14:17] LABS: Vit D 1,25 (Oh)2, Total 33 pg/mL (18-72); Vit D2 1,25 (Oh)2 <8 pg/mL; Vit D3 1,25 (Oh)2 33 pg/mL
[2021-02-23 23:03] LABS: Zinc Level, Serum or Plasma 55 mcg/dL (60-130)
== END 2021-02-18 16:16 | disposition home or self-care (01) ==
LOC: LAB 16:27
PROVIDERS: PCP Nurse Practitioner Family; Visit Provider Surgery
DX: Z98.84 Bariatric surgery status (principal)
CPT/HCPCS: 36415; 80053; 80061; 82310; 82607; 82652; 82728; 82746; 83540; 83550; 83735; 83970; 84425; 84443; 84630; 85025

== ENCOUNTER 2021-12-02 12:09 | Emergency (ER) | payer OTHER, SELFPAY ==
[2021-12-02 12:15] VITALS: BP 137/84; PULSE 76; RESP 16; TEMP 36.2; O2SAT 96; BMI 35.8
--- NOTE | 2021-12-02 12:43 | XRR_ITS ---
PROCEDURE INFORMATION: Exam: XR Chest Exam date and time: 12/02/2021 1:43 PM Age: 31 years old Clinical indication: Cough; Prior surgery; Surgery date: 6+ months; Surgery type: Gastric sleeve x 1 yr TECHNIQUE: Imaging protocol: Radiologic exam of the chest. Views: 1 view. COMPARISON: [facility] upper GI series [id number] 11/21/2020 8:06 AM FINDINGS: Lungs: Unremarkable. No consolidation. Pleural spaces: Unremarkable. No pleural effusion. No pneumothorax. Heart/Mediastinum: Unremarkable. No cardiomegaly. Bones/joints: Unremarkable. XR/XR chest 1V portable [id number] IMPRESSION: No acute findings.
--- NOTE | 2021-12-02 12:48 | ECG_ITS ---
[facility] Test Date: 2021-12-02 Pat Name: Wale Finley Department: Room: Gender: Male Night Club Manager: : 1990 Requested By: Arsalan Mueller Order Number: [id number] Billy MD: Jon Romero M.D. Measurements Intervals [place] Rate: 65 P: 29 VT: 162 QRS: -54 QRSD: 110 T: 21 QT: 376 QTc: 392 Interpretive Statements SINUS RHYTHM LEFT AXIS DEVIATION [QRS AXIS < -30] No previous ECG available for comparison Electronically Signed On 12-03-2021 7:08:04 CDT by Jon Romero M.D. [id number]
--- NOTE | 2021-12-02 12:59 | ED_ITS ---
HPI - COVID General: Chief Complaint: Shortness of Breath/Dyspnea Stated Complaint: dizzy,fever,sob,sore throat Time Seen by Provider: 12/02/21 12:44 Triage information: Has fever, cough or shortness of breath . No known COVID + exposure last 14 days History of Present Illness: Patient is a 31-year-old male comes to the ED with COVID symptoms. Symptoms started November 29. He has had fever, cough, sore throat, nasal congestion/drainage and body aches. Endorses having some diarrhea on Thursday and Thursday but has since resolved. His symptoms have been improving, but today he has a little bit of dizziness and some shortness of breath when he gets up and moves around. Denies any nausea or vomiting. He says he has been drinking plenty of fluids but not eating all that much since start of symptoms. 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 COVID 19 common symptoms: positive fever(s), non-productive cough, dyspnea (Mild shortness of breath with ambulation), fatigue, body aches, throat pain, nasal congestion and diarrhea (resolved); negative chills, productive cough, headache(s), nausea or vomiting COVID 19 other sytmptoms: positive dizziness; negative chest pain COVID Results: Nasal/Oral Coronavirus 2019 PCR Not detected 11/15/20 14:12 SARS-CoV-2 (PCR) Detected (NOT DETECT) A 12/02/21 13:58 Coronavirus Type 229E (PCR) Not detected (NOT DETECT) 12/02/21 13:58 Review of Systems Const: Reports: fever(s), body aches and fatigue; Denies: chills Eyes: Denies: change in vision or eye discomfort ENMT: Reports: throat pain, nasal discharge and nasal congestion; Denies: odynophagia Card: Denies: chest pain, palpitations, edema, swelling of feet/ankles, dyspnea on exertion or orthopnea Resp: Reports: dyspnea (Mild shortness of breath with ambulation) and non- productive cough; Denies: productive cough GI: Reports: diarrhea (resolved); Denies: abdominal pain, nausea, vomiting, constipation or hematochezia : Denies: flank pain, difficulty urinating, dysuria or hematuria Musc: Denies: neck pain, back pain or extremity swelling Skin/Breast: Denies: rash or new lesions Neuro: Reports: dizziness; Denies: headache(s), numbness in extremities or weakness in extremities PFSH ED PFSH: Medical History Acid reflux Gastritis Morbid obesity Surgical History Status post laparoscopic sleeve gastrectomy Patient undergone uneventful laparoscopic sleeve gastrectomy. Family History Other Cancer Denies family history of Diabetes CAD (coronary artery disease) Hypertension Stroke Social History Alcohol intake: current Alcohol intake frequency: few times a week Lives independently: Yes Household members: spouse Marital status: service: Yes Physical Exam Const: COMMON NORMALS: patient oriented x3 and alert GENERAL APPEARANCE: cooperative and comfortable HENMT: COMMON NORMALS: normocephalic HEAD & SCALP: normocephalic MOUTH: Normal oral and palatal mucosa present THROAT: posterior oropharynx normal and uvula midline Neck/C-Spine: COMMON NORMALS: supple GENERAL: Yes normal visual inspection Resp: COMMON NORMALS: normal respiratory effort, No retractions, No use of accessory muscles and clear to auscultation bilaterally AUSCULTATION: clear to auscultation bilaterally Cardio: COMMON NORMALS: regular rate, regular rhythm, S1 normal heart sound present, S2 normal heart sound present, No gallops present (Cardio), No clicks present (Cardio), No murmurs present (Cardio) and Peripheral pulses 2+ throughout RATE: regular rate RHYTHM: regular rhythm HEART SOUNDS: S1 normal heart sound present and S2 normal heart sound present PERIPHERAL PULSES: Peripheral pulses 2+ throughout GI: COMMON NORMALS: Normal to inspection, nondistended, normoactive bowel sounds present, Soft to palpation, non-tender and no masses PALPATION: Yes Soft to palpation : COMMON NORMALS: Yes no CVA tenderness BLADDER/KIDNEY EXAM: Yes no CVA tenderness Back/Pelvis: COMMON NORMALS: no CVA tenderness Extremity: COMMON NORMALS: normal to inspection Neuro: COMMON NORMALS: patient oriented x3 SENSORIUM/ORIENTATION: Yes alert GAIT: Yes Normal gait present Skin: GENERAL SKIN EXAM: dry skin Course Vital Signs: Vital signs: Vital Signs Temperature 97.2 F L 12/02/21 12:15 Pulse Rate 67 12/02/21 14:56 Respiratory Rate 14 12/02/21 14:56 Blood Pressure 136/72 12/02/21 14:56 Pulse Oximetry 99 12/02/21 14:56 Oxygen Delivery Me thod 12/02/21 14:34 MDM - COVID Medical Decision Making Patient is a 31-year-old male comes to the ED with COVID symptoms. Symptoms started Thursday, November 29. He has had fever, cough, sore throat, nasal congestion/drainage and body aches. Endorses having some diarrhea on Thursday and Thursday but has since resolved. Vitals are stable and patient is afebrile. Exam of patient is benign and he appears in no acute distress or pain. Chest x- ray shows no acute findings. Labs are unremarkable. COVID-19 test positive. Patient diagnosed with COVID-19 and was discharged home with a prescription for Medrol Dosepak. He was told to follow-up with his PCP in the next week for reevaluation. Return to ED precautions given. Patient understood and agreed with plan. Lab Data I reviewed the patient's lab results. : 12/02/21 13:34 12/02/21 13:34 Radiology Impressions Chest X-Ray 12/02/21 12:43 IMPRESSION: No acute findings. Laboratory Results WBC 5.6 10^3/uL (4.0-10.0) 12/02/21 13:34 RBC 5.09 10^6/uL (4.1-5.3) 12/02/21 13:34 Hgb 14.7 g/dL (11.7-16.6) 12/02/21 13:34 Hct 45.0 % (42.0-52.0) 12/02/21 13:34 MCV 88.4 fl (80-94) 12/02/21 13:34 MCH 28.9 pg (28.0-34.0) 12/02/21 13:34 MCHC 32.7 g/dL (30.0-36.0) 12/02/21 13:34 RDW 13.0 % (12.1-15.1) 12/02/21 13:34 Plt Count 253 10^3/cmm (130-400) 12/02/21 13:34 MPV 8.5 fL (7.4-10.4) 12/02/21 13:34 Neut % (Auto) 55.7 % 12/02/21 13:34 Lymph % (Auto) 25.3 % 12/02/21 13:34 Garrett % (Auto) 18.0 % 12/02/21 13:34 Eos % (Auto) 0.4 % 12/02/21 13:34 Baso % (Auto) 0.4 % 12/02/21 13:34 Neut # (Auto) 3.13 10^3/uL (1.8-7.7) 12/02/21 13:34 Lymph # (Auto) 1.4 10^3/uL (0.8-4.8) 12/02/21 13:34 Garrett # (Auto) 1.0 10^3/uL (0.2-0.9) H 12/02/21 13:34 Eos # (Auto) 0.0 10^3/uL (0.0-0.8) 12/02/21 13:34 Baso # (Auto) 0.0 10^3/uL (0.0-0.1) 12/02/21 13:34 Nucleated RBC % (auto) 0 % 12/02/21 13:34 Nucleated RBCs # 0.0 /100WBC 12/02/21 13:34 Sodium 141 mmol/L (136-145) 12/02/21 13:34 Potassium 4.0 mmol/L (3.5-5.1) 12/02/21 13:34 Chloride 105 mmol/L (98-107) 12/02/21 13:34 Carbon Dioxide 28 mmol/L (22-29) 12/02/21 13:34 Anion Gap 12.0 (5-19) 12/02/21 13:34 BUN 13 mg/dL (6-20) 12/02/21 13:34 Creatinine 1.0 mg/dL (0.7-1.2) 12/02/21 13:34 GFR Calculation 86.1 mL/min (90-130) L 12/02/21 13:34 Glucose 81 mg/dL (65-115) 12/02/21 13:34 Calculated Osmolality 291 mOsm/kg (285-295) 12/02/21 13:34 Calcium 9.3 mg/dL (8.5-10.5) 12/02/21 13:34 Total Bilirubin 0.2 mg/dL (0.15-1.2) 12/02/21 13:34 AST 27 U/L (0-40) 12/02/21 13:34 ALT 45 U/L (0-41) H 12/02/21 13:34 Alkaline Phosphatase 69 IU/L (40-130) 12/02/21 13:34 Total Protein 6.7 g/dL (6.6-8.7) 12/02/21 13:34 Albumin 4.3 g/dL (3.5-5.2) 12/02/21 13:34 Globulin 2.4 g/dL (1.3-4.6) 12/02/21 13:34 Coronavirus 229E (PCR) Not detected (NOT DETECT) 12/02/21 13:58 Influenza Type A Ag Negative (Negative) 12/02/21 13:00 Influenza Type B Ag Negative (Negative) 12/02/21 13:00 SARS-CoV-2 (PCR) Detected (NOT DETECT) A 12/02/21 13:58 Group A Strep Rapid Negative (Negative) 12/02/21 13:00 Nasal/Oral Coronavirus 2019 PCR Not detected 11/15/20 14:12 SARS-CoV-2 (PCR) Detected (NOT DETECT) A 12/02/21 13:58 Coronavirus Type 229E (PCR) Not detected (NOT DETECT) 12/02/21 13:58 EKG Data EKG 1: EKG interpretation date: 12/02/21 Interpretation: Sinus rhythm, no ST segment elevation or depression seen, 65 bpm. Discharge Plan Discharge Patient Disposition: Home Clinical Impression: COVID-19 Condition: Stable Prescriptions: New Medrol (Neo) 4 mg tablets,dose pack See Rx Instructions .ROUTE .COMPLEX Qty: 21 0RF Rx Instructions: orally per package directions No Action fluoxetine [Prozac] 20 mg capsule 20 mg PO DAILY levothyroxine 125 mcg capsule 125 mcg PO DAILY cholecalciferol (vitamin D3) 25 mcg (1,000 unit) capsule 25 mcg PO DAILY Bariatric Multivitamins 45 mg iron- 800 mcg-120 mcg Capsule 1 cap PO DAILY Discharge Orders: Discharge ED (Routine); Ordered 12/02/21 Ordered By: Arsalan Mueller Discharge Diet: Regular Discharge Activity: Increase activity as tolerated Patient Instructions: Viral Syndrome (ED) Activity Restrictions/Additional Instructions: Follow-up with medical provider as directed. COVID test is pending and results should be back within the next couple hours. [facility] to find out COVID-19 test results. Take medications as prescribed. Return to the ER or your medical provider if condition worsens. Please read and understand discharge instructions. Thank you for choosing [facility] for your healthcare needs today. Please realize this is an emergency room and that we are providing you with a medical screening exam and this may not be complete and all inclusive of all the testing and or work up that you may need to determine your ailment or severity of your illness. It is very important that you follow up as instructed or that you return to the Emergency Department should you have concerns or if your condition changes or worsens in any way. Coding Level of Care Code ED Surgery Scheduling Coordinator for Mary Stokes Exam Comprehensive
[2021-12-02 13:21] VITALS: BP 134/69; PULSE 87; RESP 14; O2SAT 98
[2021-12-02 13:40] LABS: Rapid Strep A Test Negative (Negative)
[2021-12-02 13:43] LABS: Basophils % 0.4 %; Eosinophils % 0.4 %; Hemoglobin 14.7 g/dL (11.7-16.6); Lymphocytes # 1.4 10^3/uL (0.8-4.8); Lymphocytes % 25.3 %; Mean Corpuscular HGB Conc 32.7 g/dL (30.0-36.0); Mean Corpuscular Hemoglobin 28.9 pg (28.0-34.0); Mean Corpuscular Volume 88.4 fl (80-94); Mean Platelet Volume 8.5 fL (7.4-10.4); Neutrophils # 3.13 10^3/uL (1.8-7.7); Neutrophils % 55.7 %; Nucleated Red Blood Cells % 0 %; Platelet Count 253 10^3/cmm (130-400); Red Blood Count 5.09 10^6/uL (4.1-5.3); White Blood Count 5.6 10^3/uL (4.0-10.0)
[2021-12-02 13:49] LABS: Influenza A by IFA Negative (Negative); Influenza B by IFA Negative (Negative)
[2021-12-02 14:34] VITALS: BP 132/67; RESP 14; O2SAT 99
[2021-12-02 14:46] LABS: Alanine Aminotransferase 45 U/L (0-41); Albumin Level 4.3 g/dL (3.5-5.2); Alkaline Phosphatase 69 IU/L (40-130); Aspartate Amino Transferase 27 U/L (0-40); Blood Urea Nitrogen 13 mg/dL (6-20); Calcium 9.3 mg/dL (8.5-10.5); Carbon Dioxide 28 mmol/L (22-29); Chloride 105 mmol/L (98-107); Globulin 2.4 g/dL (1.3-4.6); Glomerular Filtration Rate 86.1 mL/min (90-130); Glucose 81 mg/dL (65-115); Osmolality Calculated 291 mOsm/kg (285-295); Sodium 141 mmol/L (136-145); Total Bilirubin 0.2 mg/dL (0.15-1.2); Total Protein 6.7 g/dL (6.6-8.7)
[2021-12-02 14:56] VITALS: BP 136/72; PULSE 67; RESP 14; O2SAT 99
[2021-12-02 15:51] LABS: Adenovirus Not Detected (NOT DETECT); Chlamydia Pneumoniae Not Detected (NOT DETECT); Coronavirus 229E,HKU1,NL63,OC4 Not Detected (NOT DETECT); Human Metapneumovirus Not Detected (NOT DETECT); Human Rhinovirus/Enterovirus Not Detected (NOT DETECT); Influenza A Not Detected (NOT DETECT); Influenza A H1 Not Detected (NOT DETECT); Influenza A H1-2009 Not Detected (NOT DETECT); Influenza A H3 Not Detected (NOT DETECT); Influenza B Not Detected (NOT DETECT); Mycoplasma Pneumoniae Not Detected (NOT DETECT); Parainfluenza Virus Type 1 Not Detected (NOT DETECT); Parainfluenza Virus Type 2 Not Detected (NOT DETECT); Parainfluenza Virus Type 3 Not Detected (NOT DETECT); Parainfluenza Virus Type 4 Not Detected (NOT DETECT); Respiratory Syncytial Virus A Not Detected (NOT DETECT); Respiratory Syncytial Virus B Not Detected (NOT DETECT); SARS-COV-2 Detected (NOT DETECT)
--- NOTE | 2021-12-03 11:20 | PC.NURSE ---
pt notified of postive covid result
== END 2021-12-02 14:58 | disposition home or self-care (01) ==
PROVIDERS: Emergency Provider Physician Assistant
DX: U07.1 COVID-19 (principal)
CPT/HCPCS: 71045; 80053; 85025; 87081; 87635; 87804; 87880; 93005; 99285

== ENCOUNTER 2022-04-20 14:10 | Emergency (ER) | payer OTHER, SELFPAY ==
[2022-04-20 14:15] VITALS: BP 144/91; PULSE 74; RESP 16; TEMP 36.5; O2SAT 97
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
--- NOTE | 2022-04-21 08:05 | DCPLANNER ---
Addendum entered by Mitali Russo 05/02/22 13:49: Patient had a follow up appointment scheduled with ortho - patient did attend appointment. Addendum entered by Mitali Russo 04/22/22 13:28: Patient has a follow up appointment scheduled for Thursday, April 23, 2022 at 12:[address] Mata at ortho. Clinic will call patient with appointment information. Original Note: recreation manager had message to schedule a follow up appointment for patient with ortho. recreation manager sent patients information to the front office staff at ortho. Patients information will be printed and reviewed. Clinic will call patient with appointment information.
== END 2022-04-20 15:18 | disposition home or self-care (01) ==
PROVIDERS: Emergency Provider Physician Assistant
DX: S62.316A Displaced fracture of base of fifth metacarpal bone, right hand, initial encounter for closed fracture (principal); Y04.2XXA Assault by strike against or bumped into by another person, initial encounter
CPT/HCPCS: 29125; 73130; 99283

== ENCOUNTER 2022-04-23 14:22 | Outpatient (CLI) | payer OTHER, SELFPAY | END 2022-04-23 14:23 | disposition home or self-care (01) | LOC: SPT 14:22 | PROVIDERS: Visit Provider Specialist | DX: Z46.89 Encounter for fitting and adjustment of other specified devices (principal); S62.316D Displaced fracture of base of fifth metacarpal bone, right hand, subsequent encounter for fracture with routine healing; W22.8XXD Striking against or struck by other objects, subsequent encounter | CPT/HCPCS: 26600; 97760; 99203; L3984 ==

== ENCOUNTER → 2022-05-07 11:28 | Outpatient (BNVA) | payer OTHER, SELFPAY | PROVIDERS: Visit Provider Nurse Practitioner Family | DX: S62.316A Displaced fracture of base of fifth metacarpal bone, right hand, initial encounter for closed fracture (principal); X58.XXXA Exposure to other specified factors, initial encounter | CPT/HCPCS: 73130; 99213 ==

== ENCOUNTER 2023-09-18 07:44 | Outpatient (RCR) | payer OTHER, SELFPAY | END 2023-10-02 23:59 | disposition home or self-care (01) | LOC: SOT 07:44 | PROVIDERS: Visit Provider Family Medicine | DX: M25.541 Pain in joints of right hand (principal) | CPT/HCPCS: 97110; 97166; 97530 ==